=== PATIENT | female | born 1970 | race Caucasian/White ===

== ENCOUNTER 2016-12-19 14:07 | Emergency (ER) | payer OTHER ==
[~2016-12-19] VITALS: Ht 157.5 cm; Wt 76.0 kg
[2016-12-19 14:16] VITALS: Ht 157.5 cm; Wt 76.0 kg
[2016-12-19] MEDS ORDERED: KETOROLAC 60 MG INJ IM STA (16:10)
--- NOTE | 2016-12-19 16:55 | RADRPT ---
PROCEDURE: Right Upper Quadrant Ultrasound. CLINICAL INDICATION: Abdominal Pain TECHNIQUE: Multiple real-time images were acquired of the patient's right upper quadrant abdomen a nd retroperitoneum utilizing a high resolution transducer. COMPARISON: None FINDINGS: The liver measures 14.4 cm, and demonstrates mildly increased echogenicity. The main portal vein is patent with proper directional flow. There is no intrahepatic biliary ductal dilatation. The extrahe patic common bile duct measures 3 mm. The gallbladder is without stones, wall thickening, or pericholecystic fluid. The visualized pancreas is unremarkable. The right kidney measures 9.4 x 4.8 x 4.9 cm and demonstrates normal echotexture. There is no right renal calculus or hydronephrosis. The visualized abdominal aorta and IVC are grossly unremarkable. IMPRESSION: Mild fatty infiltration of the liver. No cholelithiasis or acute cholecystitis. Normal CBD. RPTAT: EE Physician Edwin Date Time Electronically viewed and signed by Physician Edwin on 12/19/2016 16:55 /
[2016-12-19 17:26] LABS: BASOPHILS % 0.3 % (0.0-2.0); EOSINOPHILS # 0.1 10^3/ul (0.0-0.5); EOSINOPHILS % 0.9 % (0.0-7.0); HEMOGLOBIN 14.1 g/dl (12.0-16.0); LYMPHOCYTES # 2.7 10^3/ul (0.8-2.9); LYMPHOCYTES % 29.4 % (15.0-51.0); MEAN CORPUSCULAR HEMOGLOBIN 32.1 pg (29.0-33.0); MEAN CORPUSCULAR HGB CONC 35.3 g/dl (32.0-37.0); MEAN CORPUSCULAR VOLUME 91.1 fl (82.0-101.0); MONOCYTE # 0.5 10^3/ul (0.3-0.9); MONOCYTES % 5.5 % (0.0-11.0); NEUTROPHILS % 63.7 % (39.0-77.0); PLATELET COUNT 204 10^3/UL (140-415); RED BLOOD COUNT 4.39 10^6/ul (4.20-5.40); RED CELL DISTRIBUTION WIDTH 12.4 % (11.5-14.5)
[2016-12-19 17:41] LABS: ALBUMIN 4.5 g/dl (3.3-4.9); ALBUMIN/GLOBULIN RATIO 1.15; BILIRUBIN,INDIRECT 0.5 mg/dl (0-1.1); BILIRUBIN,TOTAL 0.5 mg/dl (0.2-1.3); CALCIUM 9.7 mg/dl (8.4-10.2); CREATININE 0.71 mg/dl (0.44-1.00); TOTAL PROTEIN 8.4 g/dl (6.1-8.1)
--- NOTE | 2016-12-19 18:59 | RADRPT ---
PROCEDURE: CT Abdomen and Pelvis without intravenous contrast. CLINICAL INDICATION: Right upper quadrant abdominal pain . TECHNIQUE: CT scan of the abdomen and pelvis without intravenous contrast was performed on a multi -slice CT scanner. Coronal and sagittal reformatted images were obtained from the axial source image s. Images were reviewed on a high-resolution PACS workstation. Total DLP = 840.9 mGy-cm. CTDIvol = 15.6 mGy. One or more of the following dose reduction techniques were used: Automated exposure control. Adjustment of the mA and/or kV according to patient size. Use of iterative reconstruction technique. COMPARISON: None. FINDINGS: CT abdomen and pelvis: The lung bases show an incidental 1 cm round circumscribed mass in the left lower lung.. The heart size is normal in size. The liver is normal in size and density without focal mass or intrahepatic biliary dilatation. The spleen is normal in size and homogeneous in density. The pancreas as visu alized is normal. The gallbladder shows no evidence of stones or distension . The adrenal glands are normal. The kidneys are symmetrically unremarkable. No urolithiasis, obstructive uropathy, or solid mass lesion is seen. The stomach is partially collapsed, but is grossly unremarkable. The small bowels are unremarkable. The colon and rectum are normal. The appendix is normal. There is no evidence of appendicitis or di verticulitis. The pelvic organs are normal. The bladder is normal. There is no abdominal or pelvic a denopathy, free fluid, free air, mass or mesenteric inflammation. The aorta is normal in caliber and course. The osseous structures are intact. No osteolytic or osteo blastic lesions are identified. The soft tissues are within normal limits. Lack of IV and oral con trast limits sensitivity of exam. IMPRESSION: 1. Incidental 1 cm round circumscribed mass in the left lower lung. CT scan of the chest could be obtained to further evaluate and follow-up. 2. Otherwise unremarkable noncontrast CT abdomen and pelvis without acute pathology identified. RPTAT: VV .Efrain Asher MD, MD Date Time Electronically viewed and signed by .Efrain Asher MD, MD on 12/19/2016 18:58 .L/
[2016-12-19 19:36] LABS: URINE BLOOD (Dip) POC 2+ (NEGATIVE)
[2016-12-19] MEDS ORDERED: HYDR-906 PO (19:37)
[2016-12-19 19:59] VITALS: BP 118/72; PULSE 72; RESP 16; TEMP 98.3
--- NOTE | 2016-12-19 20:53 | ERD ---
ER Documentation Chief Complaint Date/Time DATE: 12/19/16 TIME: 20:46 Chief Complaint Complains of abdominal pain x 3 days HPI 46-year-old female coming in complaining of right upper quadrant pain that appears to be worse in the evening. Denies chest pain, denies vomiting, has not taken medications for symptoms. She states the pain is constant but appears to be worse sometimes. Denies any change in urination or bowel movement. Last bowel movement was 3 hours ago. Last normal speed was November 26. Denies cardiac chest pain or pleuritic chest pain. No shortness of breath. ROS All systems reviewed and are negative except as per history of present illness. Medications Home Meds Active Scripts Hydrocodone/Acetaminophen ([place] 5-325 Tablet) 1 Each Tablet, 1 TAB PO Q6H Y for PAIN, #7 TAB Prov:KIMBERLY CURTIS PA-C 12/19/16 Allergies Allergies: Coded Allergies: No Known Allergy (Unverified , 12/19/16) PMhx/Soc Hx Alcohol Use: No Hx Substance Use: No Hx Tobacco Use: No Smoking Status: Never smoker Physical Exam Vitals Vital Signs Date Time Temp Pulse Resp B/P Pulse Ox O2 Delivery O2 Flow Rate FiO2 12/19/16 19:59 98.3 72 16 118/72 99 12/19/16 14:16 99.3 86 20 121/77 99 Physical Exam GENERAL: The patient is well-appearing, well-nourished, in no acute distress CHEST: Clear to auscultation bilaterally. There are no rales, wheezes or rhonchi. HEART: Regular rate and rhythm. No murmurs, clicks, rubs or gallops. No S3 or S4. ABDOMEN:Soft, nontender and nondistended. Good bowel sounds. No rebound or guarding. No gross peritonitis. No gross organomegaly or masses. No Encarnacion sign or McBurney point tenderness. BACK: No midline or flank tenderness. Result Diagram: 12/19/16 1700 12/19/16 1700 Results 24 hrs Laboratory Tests Test 12/19/16 17:00 12/19/16 19:42 White Blood Count 9.010^3/ul Red Blood Count 4.3910^6/ul Hemoglobin 14.1g/dl Hematocrit 40.0% Mean Corpuscular Volume 91.1fl Mean Corpuscular Hemoglobin 32.1pg Mean Corpuscular Hemoglobin Concent 35.3g/dl Red Cell Distribution Width 12.4% Platelet Count 64004^3/UL Mean Platelet Volume 12.0fl Neutrophils % 63.7% Lymphocytes % 29.4% Monocytes % 5.5% Eosinophils % 0.9% Basophils % 0.3% Nucleated Red Blood Cells % 0.0/100WBC Neutrophils # (Manual) 5.710^3/ul Lymphocytes # 2.710^3/ul Monocytes # 0.510^3/ul Eosinophils # 0.110^3/ul Basophils # 0.010^3/ul Nucleated Red Blood Cells # 0.010^3/ul Sodium Level 143mmol/L Potassium Level 4.0mmol/L Chloride Level 103mmol/L Carbon Dioxide Level 27mmol/L Anion Gap 17 Blood Urea Nitrogen 8mg/dl Creatinine 0.71mg/dl Glucose Level 155mg/dl Calcium Level 9.7mg/dl Total Bilirubin 0.5mg/dl Direct Bilirubin 0.00mg/dl Indirect Bilirubin 0.5mg/dl Aspartate Amino Transf (AST/SGOT) 41IU/L Alanine Aminotransferase (ALT/SGPT) 52IU/L Alkaline Phosphatase 89IU/L Total Protein 8.4g/dl Albumin 4.5g/dl Globulin 3.90g/dl Albumin/Globulin Ratio 1.15 Lipase 278U/L Serum HCG, Qualitative NEGATIVE Bedside Urine pH (LAB) 7.0 Bedside Urine Protein (LAB) Negative Bedside Urine Glucose (UA) Negative Bedside Urine Ketones (LAB) Negative Bedside Urine Blood 2+ Bedside Urine Nitrite (LAB) Negative Bedside Urine Leukocyte Esterase (L Negative Current Medications Medications (Trade) Dose Ordered Sig/Anu Route PRN Reason Start Time Stop Time Status Last Admin Dose Admin Ketorolac Tromethamine (Toradol) 60 mg ONCE STAT IM 12/19/16 16:10 12/19/16 16:12 DC 12/19/16 17:01 Procedures/MDM DIAGNOSTIC IMAGING REPORT Patient: VINI BARRIOS : 1970 Age: 46 Sex: F MR #: [id number] DOS: 12/19/16 1748 Ordering MD: AMIE CURTIS PA-C Location: E Room/Bed: PROCEDURE: CT Abdomen and Pelvis without intravenous contrast. CLINICAL INDICATION: Right upper quadrant abdominal pain . TECHNIQUE: CT scan of the abdomen and pelvis without intravenous contrast was performed on a multi-slice CT scanner. Coronal and sagittal reformatted images were obtained from the axial source images. Images were reviewed on a high- resolution PACS workstation. Total DLP = 840.9 mGy-cm. CTDIvol = 15.6 mGy. One or more of the following dose reduction techniques were used: Automated exposure control. Adjustment of the mA and/or kV according to patient size. Use of iterative reconstruction technique. COMPARISON: None. FINDINGS: CT abdomen and pelvis: The lung bases show an incidental 1 cm round circumscribed mass in the left lower lung.. The heart size is normal in size. The liver is normal in size and density without focal mass or intrahepatic biliary dilatation. The spleen is normal in size and homogeneous in density. The pancreas as visualized is normal. The gallbladder shows no evidence of stones or distension . The adrenal glands are normal. The kidneys are symmetrically unremarkable. No urolithiasis, obstructive uropathy, or solid mass lesion is seen. The stomach is partially collapsed, but is grossly unremarkable. The small bowels are unremarkable. The colon and rectum are normal. The appendix is normal. There is no evidence of appendicitis or diverticulitis. The pelvic organs are normal. The bladder is normal. There is no abdominal or pelvic adenopathy, free fluid, free air, mass or mesenteric inflammation. The aorta is normal in caliber and course. The osseous structures are intact. No osteolytic or osteoblastic lesions are identified. The soft tissues are within normal limits. Lack of IV and oral contrast limits sensitivity of exam. IMPRESSION: 1. Incidental 1 cm round circumscribed mass in the left lower lung. CT scan of the chest could be obtained to further evaluate and follow-up. 2. Otherwise unremarkable noncontrast CT abdomen and pelvis without acute pathology identified. DIAGNOSTIC IMAGING REPORT Patient: VINI BARRIOS : 1970 Age: 46 Sex: F MR #: [id number] DOS: 12/19/16 1610 Ordering MD: AMIE CURTIS PA-C Location: E Room/Bed: PROCEDURE: Right Upper Quadrant Ultrasound. CLINICAL INDICATION: Abdominal Pain TECHNIQUE: Multiple real-time images were acquired of the patient's right upper quadrant abdomen and retroperitoneum utilizing a high resolution transducer. COMPARISON: None FINDINGS: The liver measures 14.4 cm, and demonstrates mildly increased echogenicity. The main portal vein is patent with proper directional flow. There is no intrahepatic biliary ductal dilatation. The extrahepatic common bile duct measures 3 mm. The gallbladder is without stones, wall thickening, or pericholecystic fluid. The visualized pancreas is unremarkable. The right kidney measures 9.4 x 4.8 x 4.9 cm and demonstrates normal echotexture. There is no right renal calculus or hydronephrosis. The visualized abdominal aorta and IVC are grossly unremarkable. IMPRESSION: Mild fatty infiltration of the liver. No cholelithiasis or acute cholecystitis. Normal CBD. ER Course: Toradol given in ED MDM: 46-year-old female coming in complaining of generalized abdominal pain. I will suspicion for choledocholithiasis, cholecystitis, or pancreatitis. I have low suspicion for cardiac or pulmonary emergency. Patient's vital signs are stable patient is nontoxic-appearing. I have low suspicion of bowel obstruction. Patient had bowel movement 3 hours ago. I have low suspicion for nephrolithiasis or septic stone. A low suspicion for [place]. A low suspicion for pelvic emergency including but not limited to tubo-ovarian abscess, ovarian torsion, or ectopic . I have low suspicion for appendicitis or diverticulitis with perforation. Departure Diagnosis: Primary Impression: Abdominal pain Condition: Stable Patient Instructions: Abdominal Pain Referrals: [facility] YOU HAVE RECEIVED A MEDICAL SCREENING EXAM AND THE RESULTS INDICATE THAT YOU DO NOT HAVE A CONDITION THAT REQUIRES URGENT TREATMENT IN THE EMERGENCY DEPARTMENT. FURTHER EVALUATION AND TREATMENT OF YOUR CONDITION CAN WAIT UNTIL YOU ARE SEEN IN YOUR DOCTORS OFFICE WITHIN THE NEXT 1-2 DAYS. IT IS YOUR RESPONSIBILITY TO MAKE AN APPOINTMENT FOR FOLOW-UP CARE. IF YOU HAVE A PRIMARY DOCTOR --you should call your primary doctor and schedule an appointment IF YOU DO NOT HAVE A PRIMARY DOCTOR YOU CAN CALL OUR PHYSICIAN REFERRAL HOTLINE AT IF YOU CAN NOT AFFORD TO SEE A PHYSICIAN YOU CAN CHOSE FROM THE FOLLOWING [facility] [employer] [id number] [facility] [address] [facility] [facility] [address] [facility] [address] [facility] [address] [facility]. [facility]. [address] Additional Instructions: FOLLOW UP WITH YOUR PRIMARY CARE PHYSICIAN TOMORROW.Return to this facility if you are not improving as expected. KIMBERLY CURTIS PA-C Dec 19, 2016 20:53
== END 2016-12-19 20:01 | disposition home or self-care (01) ==
LOC: FTE 14:07
DX: R10.11 Right upper quadrant pain (principal)
CPT/HCPCS: 36415; 74176; 76705; 80053; 81003; 83690; 84703; 85025; 96372; J1885; Z7502